=== PATIENT | male | born 1975 | race African-American/Black ===

== ENCOUNTER 2017-06-23 17:35 | Inpatient (IN) | payer BC ==
[~2017-06-23] VITALS: Ht 180.3 cm; Wt 79.4 kg
[2017-06-23] MEDS ORDERED: ALBUTEROL2.5 MG/3 M IH (20:51)
[2017-06-23] MEDS ORDERED: MONTELUKAST SOD10 MG PO (20:52)
[2017-06-23] MEDS ORDERED: ADVAIR 250/501 DISK IH (20:52)
[2017-06-23] MEDS ORDERED: PROAIR HFA8.5 GM IH (20:52)
[2017-06-23 20:54] LABS: HEMATOCRIT 43.2 % (38.0-50.0); MCH 29.4 PG (29.0-34.0); MCHC 32.9 G/DL (30.0-36.0); MCV 89.4 FL (86-99); MEAN PLAT.VOLUME 10.5 uM^3 (9.0-12.4); PLATELET COUNT 173 K/uL (156-360); RBC DIS.WIDTH-CV 11.7 % (11.8-14.6); RBC DIS.WIDTH-SD 38.5 % (39-53); RED BLOOD COUNT 4.83 M/uL (4.00-5.50); WHITE BLOOD COUNT 7.9 K/uL (4.1-10.2)
[2017-06-23 21:03] LABS: CHLORIDE 106 mEq/L (99-109); POTASSIUM 4.2 mEq/L (3.7-5.4); SODIUM 139 mEq/L (136-147)
[2017-06-23 21:05] LABS: GLUCOSE 137 mg/dL (70-99)
[2017-06-23 21:06] LABS: ANION GAP 11 MEQ/L (2-14)
[2017-06-23 21:07] LABS: TOTAL BILIRUBIN 0.4 mg/dL (0.0-1.0)
[2017-06-23 21:08] LABS: ALKALINE PHOSPHATASE 58 IU/L (3-129)
[2017-06-23 21:10] LABS: UREA NITROGEN (BUN) 12 mg/dL (9-23)
[2017-06-23 21:12] LABS: GFR ESTIMATE (CALCULATED) > 59 mL/min/
[2017-06-24 00:28] VITALS: BP 138/91
[2017-06-24 06:19] LABS: EOSINOPHIL (%) 0 % (0-5); HEMATOCRIT 43.8 % (38.0-50.0); IMMATURE GRANULOCYTE (%) 0.7 % (0.0-0.7); IMMATURE GRANULOCYTE COUNT 0.1 K/uL; INSTRUMENT ABS NEUTROPHIL CT 6.5 K/uL; LYMPHOCYTE COUNT 0.6 K/uL (1.0-2.8); MCH 28.9 PG (29.0-34.0); MCV 90.3 FL (86-99); MEAN PLAT.VOLUME 10.8 uM^3 (9.0-12.4); MONOCYTE (%) 3.9 % (3-12); MONOCYTE COUNT 0.3 K/uL (0-0.8); NEUTROPHIL (%) 87.1 % (45-76); NEUTROPHIL COUNT 6.5 K/uL (1.8-6.4); PLATELET COUNT 170 K/uL (156-360); RBC DIS.WIDTH-CV 11.9 % (11.8-14.6); RBC DIS.WIDTH-SD 39.3 % (39-53); RED BLOOD COUNT 4.85 M/uL (4.00-5.50); WHITE BLOOD COUNT 7.5 K/uL (4.1-10.2)
[2017-06-24 06:41] LABS: ANION GAP 8 MEQ/L (2-14); CHLORIDE 107 MEQ/L (99-109); GFR ESTIMATE (CALCULATED) > 59 mL/min/; GLUCOSE 125 mg/dL (70-99); POTASSIUM 4.8 MEQ/L (3.7-5.4); SAMPLE HEMOLYSIS CHECK 0; SAMPLE ICTERIC CHECK 0; SAMPLE LIPEMIA CHECK 0; SODIUM 140 MEQ/L (136-147); UREA NITROGEN (BUN) 13 mg/dL (9-23)
[2017-06-24 06:59] LABS: Estimated Average Glucose 97 mg/dL (70-123)
[2017-06-24 08:43] VITALS: BP 152/81
[2017-06-24 23:36] VITALS: BP 155/99
[2017-06-25 05:22] LABS: BASE EXCESS -11.8 mEq/L (-3 to +3); BICARBONATE 19.1 mEq/L (22-26); CARBOXY HGB 1.1 % (0-5); PCO2 63 mm Hg (35-45); PO2 391 mm Hg (80-100)
[2017-06-25 05:23] LABS: COMMENTS - BLOOD GASES A+C+; DEVICE NRBM; FI02 100 %; O2 FLOW 15 L/MIN; SITE RR; TOTAL RESP RATE 30 resp/min; pH 7.09 (7.35-7.45)
[2017-06-25 05:33] LABS: EOSINOPHIL (%) 1.3 % (0-5); EOSINOPHIL COUNT 0.2 K/uL (0-0.3); HEMATOCRIT 48.1 % (38.0-50.0); IMMATURE GRANULOCYTE (%) 0.5 % (0.0-0.7); IMMATURE GRANULOCYTE COUNT 0.1 K/uL; LYMPHOCYTE COUNT 6.7 K/uL (1.0-2.8); MCH 29.5 PG (29.0-34.0); MCHC 31.6 G/DL (30.0-36.0); MCV 93.4 FL (86-99); MEAN PLAT.VOLUME 10.8 uM^3 (9.0-12.4); MONOCYTE (%) 6.5 % (3-12); NEUTROPHIL (%) 46.7 % (45-76); PLATELET COUNT 215 K/uL (156-360); RBC DIS.WIDTH-CV 12.1 % (11.8-14.6); RBC DIS.WIDTH-SD 42.2 % (39-53); RED BLOOD COUNT 5.15 M/uL (4.00-5.50); WHITE BLOOD COUNT 14.9 K/uL (4.1-10.2)
[2017-06-25 05:52] LABS: PROTHROMBIN TIME 10.4 SEC (10.2-12.9)
[2017-06-25 05:55] LABS: PTT 29.1 SEC (25-37)
[2017-06-25 06:00] VITALS: BP 159/103
[2017-06-25 06:00] LABS: TROP-I INTERPRETATION NEGATIVE; TROPONIN-I 0.01 ng/mL (0.0-0.30)
[2017-06-25 06:30] LABS: ANION GAP 15 MEQ/L (2-14); CHLORIDE 105 MEQ/L (99-109); GFR ESTIMATE (CALCULATED) > 59 mL/min/; GLUCOSE 152 mg/dL (70-99); SAMPLE HEMOLYSIS CHECK 0; SAMPLE ICTERIC CHECK 0; SAMPLE LIPEMIA CHECK 0; SODIUM 141 MEQ/L (136-147); UREA NITROGEN (BUN) 15 mg/dL (9-23)
[2017-06-25 06:33] LABS: POTASSIUM 3.8 MEQ/L (3.7-5.4)
[2017-06-25 07:21] LABS: METH RESISTANT S AUREUS PCR NEGATIVE (NEGATIVE)
[2017-06-25 07:22] LABS: PROBE CHECK PASS; SPECIMEN PROCESSING CONTROL PASS
[2017-06-25 08:00] VITALS: BP 128/98
[2017-06-25 12:00] VITALS: BP 136/91
[2017-06-25 14:00] VITALS: BP 136/96
[2017-06-25 15:41] VITALS: BP 122/72
[2017-06-25 20:39] VITALS: BP 129/81
[2017-06-26 00:20] VITALS: BP 142/83
[2017-06-26 06:51] VITALS: BP 121/63
[2017-06-26] MEDS ORDERED: LEVAQUIN500 MG PO (11:05)
[2017-06-26] MEDS ORDERED: PREDNISONE10 MG PO ×2 (11:07→11:36)
[2017-06-26] MEDS ORDERED: ADVAIR 250/501 DISK IH (11:07)
== END 2017-06-26 13:44 | disposition home or self-care (01) | DRG 190 ==
LOC: EME 17:35 → EDOF 21:56 → ENRESERV 21:58 → 5SOUTH 23:30 → ENRESERV 06-25 05:35 → 4WEST 06-25 05:49 → ENRESERV 06-25 09:21 → 5EAST 06-25 15:13 → ENPENDDIS 06-26 → 5EAST 06-26 13:44
PROVIDERS: Emergency Medicine; Hospitalist; Internal Medicine
DX: J44.0 Chronic obstructive pulmonary disease with (acute) lower respiratory infection (principal); J96.01 Acute respiratory failure with hypoxia; J45.21 Mild intermittent asthma with (acute) exacerbation; J44.1 Chronic obstructive pulmonary disease with (acute) exacerbation; G47.33 Obstructive sleep apnea (adult) (pediatric); N17.9 Acute kidney failure, unspecified; R56.9 Unspecified convulsions; J98.11 Atelectasis; F17.200 Nicotine dependence, unspecified, uncomplicated; R73.9 Hyperglycemia, unspecified; J18.0 Bronchopneumonia, unspecified organism; E87.2 Acidosis
CPT/HCPCS: 36600; 70450; 71010; 71020; 71275; 80048; 80053; 82803; 82948; 83036; 83605; 84484; 85025; 85027; 85610; 85730; 87040; 87070; 87205; 87449; 87641; 93005; 94640; 94640 76; 94644; 94799; 95819; 99202; 99281; 99285; J1940; J1956; J2060; J2930; J3475; J7030; J7512

== ENCOUNTER 2017-07-13 17:12 | Emergency (ER) | payer BC ==
[~2017-07-13] VITALS: Ht 182.9 cm; Wt 82.8 kg
[~2017-07-13 17:12] MED LIST: ADVAIR 250/501 DISK IH; ALBUTEROL2.5 MG/3 M IH; LEVAQUIN500 MG PO; MONTELUKAST SOD10 MG PO; PREDNISONE10 MG PO; PROAIR HFA8.5 GM IH
[2017-07-13] MEDS ORDERED: ADVAIR 250/501 DISK IH (17:49)
[2017-07-13 17:52] LABS: CHLORIDE 104 mEq/L (99-109)
[2017-07-13 17:53] LABS: HEMATOCRIT 42.8 % (38.0-50.0); MCHC 32.7 G/DL (30.0-36.0); POTASSIUM 3.5 mEq/L (3.7-5.4); RBC DIS.WIDTH-CV 11.9 % (11.8-14.6); RBC DIS.WIDTH-SD 38.3 % (39-53); RED BLOOD COUNT 4.83 M/uL (4.00-5.50); SODIUM 141 mEq/L (136-147); WHITE BLOOD COUNT 4.5 K/uL (4.1-10.2)
[2017-07-13 17:54] LABS: GLUCOSE 97 mg/dL (70-99)
[2017-07-13 17:56] LABS: ANION GAP 10 MEQ/L (2-14)
[2017-07-13 17:58] LABS: GFR ESTIMATE (CALCULATED) > 59 mL/min/
[2017-07-13 17:59] LABS: UREA NITROGEN (BUN) 13 mg/dL (9-23)
[2017-07-13 18:00] LABS: MCV 88.6 FL (86-99)
[2017-07-13 18:36] LABS: MEAN PLAT.VOLUME 10.6 uM^3 (9.0-12.4); PLAT.SUFFICIENCY DECREASED
[2017-07-13] MEDS ORDERED: PREDNISONE20 MG PO (18:43)
[2017-07-13 18:47] LABS: PLATELET COUNT 147 K/uL (156-360)
[2017-07-13 18:53] VITALS: BP 129/81
== END 2017-07-13 18:54 | disposition home or self-care (01) ==
LOC: EME 17:12
DX: J45.901 Unspecified asthma with (acute) exacerbation (principal); Z87.891 Personal history of nicotine dependence; Z88.0 Allergy status to penicillin
CPT/HCPCS: 71020; 80048; 85027; 94640; 99281; 99284; J7512